=== PATIENT | male | born 1935 | race African-American/Black ===

== ENCOUNTER 2019-01-18 07:38 | Inpatient (IN) ==
[2019-01-18] MEDS ORDERED: ASPIRIN PO ONE (07:51)
[2019-01-18] MEDS ORDERED: NITROGLYCERIN TOP ONE (07:52)
[2019-01-18] MEDS ORDERED: LASIX IV ONE (07:52)
[2019-01-18 08:14] LABS: BASO# 0.05 X1000 (0.0-0.2); BASO% 0.6 % (0.0-0.8); EOS# 0.18 X1000 (0.0-0.7); EOS% 2.2 % (0.0-10.0); HEMATOCRIT 37.7 % (42.0-52.0); HEMOGLOBIN 12.1 g/dL (14.0-18.0); LYMPH# 1.74 X1000 (1.2-3.4); LYMPH% 21.6 % (20.5-51.1); MCH 29.9 PG (27-31); MCHC 32.1 g/dL (33-37); MCV 93.1 FL (81-99); MONO# 0.84 X1000 (0.11-0.59); MONO% 10.4 % (1.7-9.3); MPV 9.8 FL (7.4-10.4); NEUT# 5.24 X1000 (1.4-6.5); NEUT% 65.2 % (42.2-75.2); PLT 254 X1000 (130-400); RBC 4.05 XMIL (4.7-6.1); RDW 13.8 % (11.5-14.5); WBC 8.05 X1000 (4.8-10.8)
--- NOTE | 2019-01-18 08:19 | EKG Report ---
Test Performed on : 01/18/2019 07:50:17 AM Test Reason : SOB Blood Pressure : / mmHG Vent. Rate : 104 BPM Atrial Rate : 030 BPM P-R Int : 000 ms QRS Dur : 114 ms QT Int : 408 ms P-R-T Axes : 000 -44 061 degrees QTc Int : 536 ms Accelerated Junctional rhythm. with occasional premature ventricular complexes. Left axis deviation Low voltage QRS Cannot rule out Anteroseptal infarct (cited on or before 06-JUL-2013) Prolonged QT Abnormal ECG When compared with ECG of 04-JAN-2014 07:09, Significant changes have occurred Unconfirmed Result
[2019-01-18 08:21] LABS: INR 1.08; PROTIME 14.1 Seconds (11.0-16.0)
[2019-01-18 08:22] LABS: PTT 34.1 Seconds (22.3-41.8)
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
[2019-01-18] MEDS ORDERED: NS 1,000 ML IV ONE (08:52)
[2019-01-18] MEDS ORDERED: ROCEPHIN 1 GM in NS 50 ML IV ONE (08:52)
[2019-01-18] MEDS ORDERED: ZITHROMAX PO ONE (08:52)
[2019-01-18 08:58] LABS: ALB/GLOB RATIO 1.4; ALBUMIN 3.8 g/dL (3.5-5.0); CALCIUM 9.5 mg/dL (8.8-10.2); CREATININE 1.6 mg/dL (0.7-1.2); POTASSIUM 4.3 mmol/L (3.5-5.1); TOTAL BILIRUBIN 0.66 mg/dL (0.20-1.00); TOTAL PROTEIN 6.6 g/dL (6.3-8.3)
[2019-01-18 09:11] LABS: ALLEN TEST YES; BE -3.5 mmoll (-3.0-3.0); BLOOD TYPE ARTERIAL; HCO3-(ACT) 22.2 mmoll (20.0-26.0); O2(CT) 16.3 mL/dL (15.0-23.0); O2HB 95.9 % (95.0-99.0); PCO2(98.6) 31 mmHg (35-45); PO2(98.6) 87 mmHg (60-100); SAMPLE BLOOD; SAO2 98.9 % (95.0-100.0); pH(98.6) 7.42 (7.35-7.45)
[2019-01-18 09:13] LABS: MODALITY CANNULA
[2019-01-18 09:45] LABS: URINE SOURCE CATH
[2019-01-18 09:53] LABS: BILIRUBIN URINE NEGATIVE (NEGATIVE); BLOOD URINE NEGATIVE (NEGATIVE); COLOR YELLOW; GLUCOSE URINE NEGATIVE (NEGATIVE); KETONE URINE NEGATIVE (NEGATIVE); LEUKOCYTES URINE NEGATIVE (NEGATIVE); NITRITE URINE NEGATIVE (NEGATIVE); PROTEIN URINE TRACE mg/dL (NEGATIVE); TURBIDITY URINE CLEAR (CLEAR); UR EPITHELIAL CELLS <10 /HPF (<10); URINE BACTERIA NEGATIVE /HPF; URINE RBC <10 /HPF (<10); URINE WBC <10 /HPF (<10); UROBILINOGEN URINE NORMAL (NORMAL)
[2019-01-18] MEDS ORDERED: ZITHROMAX 500 MG/NS 500 MG/250 ML IVPB IV ONE (10:03)
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
--- NOTE | 2019-01-18 10:28 | HISTORY AND PHYSICAL ---
HISTORY OF PRESENT ILLNESS: This is an 83-year-old. He presents with a couple-day history of shortness of breath. He had recently had a right hip fracture and repair and then was doing rehab, and he at times would complain of not being able to empty his bladder, but also shortness of breath and became more short of breath today. Came to the emergency room. They did put a Castillo catheter in. He was having trouble with voiding. PAST MEDICAL HISTORY: 1. Congestive heart failure. Looking at his echo, he has a normal ventricular ejection fraction and no significant valvular dysfunction. So, I assume this is congestive heart failure with normal ejection fraction. 2. Hypertension. 3. Hyperlipidemia. 4. COPD. 5. Status post cholecystectomy. He had a left heart catheterization in 2001 that demonstrated ejection fraction of 50% at that time. He had a ramus which was 40% to 50% block. His circumflex with no significant disease. 6. History of diabetes mellitus type 2. 7. Nonobstructive coronary artery disease. 8. Chronic kidney disease. Creatinine baseline was 1.8. SOCIAL HISTORY: He does not smoke or drink. He is a patient of Dr. Ej Lopez. FAMILY HISTORY: Noncontributory. REVIEW OF SYSTEMS: General: No fever or chills. HEENT: Unremarkable. No change in visual or hearing acuity. Neck: No neck pain. No cervical adenopathy. Respiratory: No increased work of breathing until this last couple weeks. Recently had a right hip surgery and went to rehab. GI and : Trouble with voiding and emptying his bladder. Endocrinologic/hematologic: No significant history. Musculoskeletal: Recent right hip open reduction and internal fixation. PHYSICAL EXAMINATION: VITAL SIGNS: Temperature 98.5 degrees, pulse 113, respirations 30, blood pressure 171/102. EYES: Pupils are equal and round. LUNGS: Clear in all lung rodriguez. CARDIOVASCULAR EXAM: Regular rhythm and rate without murmur or S3. ABDOMEN: Soft. SKIN: Warm and dry. LABORATORY DATA: White count 8050, hematocrit 37, platelet count 254,000. Sodium 144, potassium 4.3, chloride 104. BUN 18, creatinine 1.6. AST 20, ALT 20. Troponin was 0.075. ProBNP was 17, 625. Pro time 14, INR 1.08, PTT is 34. Urinalysis was unremarkable. Blood gas is pH 7.42, pCO2 31, PO2 is 87, O2 saturation is 98%. IMAGING: Chest x-ray: Pulmonary edema, borderline cardiomegaly. ASSESSMENT AND PLAN: 1. Pulmonary venous hypertension and shortness of breath. We will give him 40 of Lasix intravenous every 12 hours right now. We will see if we can adjust his afterload with medications. His blood pressure currently is a little high. In looking on his home medicines, he is on lisinopril 20 mg daily, so we will go up on the lisinopril of 20 mg twice a day and we will go ahead and add Norvasc or amlodipine. We will give him 5 mg twice a day oral. We will check his magnesium and potassium. We will check his thyroid function. 2. I suspect benign prostatic hypertrophy with bladder retention. So, he has a Castillo catheter in right now. We are going to put him on Flomax 0.4 mg. We will do that twice a day for right now, and I think we will go ahead and put him on some Proscar which is 5 mg daily, and see if we can take his Castillo catheter out a little later on, probably tomorrow. 3. History of right hip fracture repair. Continue physical therapy. 4. Hypertension. cc: Leonard Putnam MD
[2019-01-18] MEDS ORDERED: APRESOLINE IV PRN (11:42)
[2019-01-18] MEDS ORDERED: ELAVIL PO PRN (11:42)
[2019-01-18] MEDS ORDERED: ZOFRAN IV PRN (11:42)
[2019-01-18] MEDS ORDERED: TYLENOL PO PRN (11:42)
[2019-01-18 12:26] LABS: FREE T4 1.43 ng/dL (0.93-1.70); TSH 3.67 uIUmL (0.27-4.20)
[2019-01-18] MEDS: NORVASC PO SCH (13:04)
[2019-01-18] MEDS: FLOMAX PO SCH ×2 (13:04→22:12)
[2019-01-18] MEDS: PROSCAR PO SCH (15:54)
[2019-01-18] MEDS: LASIX IV SCH (22:12)
[2019-01-18] MEDS: PRINIVIL PO SCH (22:12)
[2019-01-18] MEDS: ELIQUIS PO SCH (22:12)
[2019-01-18] MEDS: COREG PO SCH (22:12)
[2019-01-19 05:57] LABS: BASO# 0.02 X1000 (0.0-0.2); BASO% 0.3 % (0.0-0.8); EOS# 0.12 X1000 (0.0-0.7); EOS% 1.7 % (0.0-10.0); HEMATOCRIT 33.8 % (42.0-52.0); HEMOGLOBIN 10.9 g/dL (14.0-18.0); LYMPH% 24.2 % (20.5-51.1); MCHC 32.2 g/dL (33-37); MCV 93.1 FL (81-99); MONO# 0.75 X1000 (0.11-0.59); MONO% 10.7 % (1.7-9.3); MPV 10.1 FL (7.4-10.4); NEUT# 4.43 X1000 (1.4-6.5); NEUT% 63.1 % (42.2-75.2); PLT 245 X1000 (130-400); RBC 3.63 XMIL (4.7-6.1); RDW 13.7 % (11.5-14.5); WBC 7.02 X1000 (4.8-10.8)
[2019-01-19 06:03] LABS: CALCIUM 9.3 mg/dL (8.8-10.2); CREATININE 1.6 mg/dL (0.7-1.2); POTASSIUM 3.9 mmol/L (3.5-5.1)
[2019-01-19] MEDS: FLOMAX PO SCH ×2 (08:58→20:10)
[2019-01-19] MEDS: PROSCAR PO SCH (08:58)
[2019-01-19] MEDS: NORVASC PO SCH (08:58)
[2019-01-19] MEDS: LASIX IV SCH ×2 (08:58→20:10)
[2019-01-19] MEDS: ASPIRIN PO SCH (08:58)
[2019-01-19] MEDS: COREG PO SCH ×2 (08:58→20:10)
[2019-01-19] MEDS: ELIQUIS PO SCH ×2 (08:58→20:10)
[2019-01-19] MEDS: PRINIVIL PO SCH ×2 (08:58→21:20)
[2019-01-19] MEDS: KLOR-CON PO SCH (08:59)
--- NOTE | 2019-01-19 12:33 | PROGRESS NOTE ---
DATE: 01/19/2019 SUBJECTIVE: Mr. Corral is feeling better and his breathing is better. OBJECTIVE: Temperature 99 degrees, pulse 89, respirations 15, and blood pressure 111/65. Pupils are equal and round. Lungs are clear in all lung rodriguez. Cardiovascular exam with regular rhythm and rate without murmur or S3. ASSESSMENT AND PLAN: 1. Pulmonary venous hypertension and shortness of breath. He seems to be responding to Lasix with good diuresis. He is breathing better and clinically feels better. He is on lisinopril 20 mg a day, and we went up on it to 20 mg twice a day. We added Norvasc 5 mg twice a day. 2. Benign prostatic hypertrophy with bladder retention. Castillo catheter placed. Put him on some Proscar, and Flomax, and see if we get the catheter out. 3. He has had a right hip fracture repair fairly recently, and was getting physical therapy. 4. Hypertension. CURRENT MEDICATIONS: He is on Elavil 10 mg at bedtime p.r.n., Norvasc 5 mg daily, Eliquis 2.5 mg b.i.d., aspirin 81 mg a day, Coreg 6.25 mg b.i.d., Proscar 5 mg a day, Lasix 40 mg IV q.12, hydralazine 10 mg IV q.4 hours p.r.n., lisinopril 20 mg b.i.d., Flomax 0.4 mg b.i.d., aspirin 325 mg and got a one time dose. He got 1 dose of azithromycin and 1 dose of ceftriaxone when he came in. LABORATORY DATA: Review of his labs this morning, white count 7020, hematocrit 33, and platelet count 245,000. Sodium 142, potassium 3.9, chloride 103, bicarb 25, BUN 18, creatinine 1.6, and that is what he came in with as well 1.6. His proBNP was 81070. cc: Leonard Putnam MD
[2019-01-20 08:29] LABS: CALCIUM 9.5 mg/dL (8.8-10.2); CREATININE 1.9 mg/dL (0.7-1.2); MAGNESIUM 1.6 mg/dL (1.5-2.7); POTASSIUM 4.2 mmol/L (3.5-5.1)
--- NOTE | 2019-01-20 08:32 | PROGRESS NOTE ---
DATE: 01/20/2019 SUBJECTIVE: Mr. Corral is a patient of Dr. Lopez, an 83-year-old who presents with a couple day history of shortness of breath. He has recently had a hip fracture and repair. He is having trouble emptying his bladder. He also had shortness of breath and presented to the emergency room. States he is breathing better today, and last night had a good night's sleep. OBJECTIVE: Vital Signs: Temperature 98.0 degrees, pulse 66, respirations 15, blood pressure 116/50. Eyes: Pupils are equal and round. Lungs: Lungs are clear in all lung rodriguez. Cardiovascular exam: Regular rhythm and rate without murmur or S3. Abdomen: Abdomen is soft. Skin: Warm and dry. : Urine output is 1800 mL. ASSESSMENT AND PLAN: 1. Pulmonary venous hypertension. Shortness of breath. Has responded to diuresis. Seems to be doing better. 2. Benign prostatic hypertrophy, suspected with bladder retention. He is on Proscar and Flomax. We need to stop the Castillo catheter, see if he can void. 3. Recent right hip fracture. 4. Hypertension. So, we will get the Castillo catheter out. We will see how we do walking around. He has physical therapy ordered. Hopefully can go home. Note his serum creatinine was 1.6 yesterday which seems to be baseline. cc: Leonard Putnam MD
--- NOTE | 2019-01-20 08:34 | Diag Imaging Result Doc PS360 ---
EXAM: CHEST-2 VIEWS HISTORY: chf TECHNIQUE: Chest two views COMPARISON: 01/18/2019 FINDINGS: The lungs are well expanded. The heart is not enlarged. The vessels are not distended on the current exam. There are no infiltrates. There is scarring in the left base. No pleural effusions. There are multiple pieces of metal in the lower neck and upper chest similar to the prior study. IMPRESSION: Resolution of the pulmonary edema. Electronically signed by Augie Burleson 01/20/2019 8:32 AM
[2019-01-20] MEDS: LASIX IV SCH (08:56)
[2019-01-20] MEDS: NORVASC PO SCH (08:57)
[2019-01-20] MEDS: COREG PO SCH (08:57)
[2019-01-20] MEDS: ELIQUIS PO SCH (08:57)
[2019-01-20] MEDS: PROSCAR PO SCH (08:57)
[2019-01-20] MEDS: ASPIRIN PO SCH (08:57)
[2019-01-20] MEDS: PRINIVIL PO SCH (08:57)
[2019-01-20] MEDS: FLOMAX PO SCH (08:57)
[2019-01-20] MEDS: KLOR-CON PO SCH (08:57)
[2019-01-20 16:07] VITALS: BP 111/67
--- NOTE | 2019-01-20 17:26 | DISCHARGE SUMMARY ---
ADMISSION DATE: 01/18/2019 DISCHARGE DATE: 01/20/2019 HISTORY OF PRESENT ILLNESS: This is an 83-year-old who presented with a couple-day history of shortness of breath. Recently had a repeat right hip fracture and repair. Was doing rehab and complained of not being able to empty his bladder. Also had some shortness of breath and became more short of breath. Came to the emergency room. PAST MEDICAL HISTORY: 1. Congestive heart failure. Looking at his echo, he has a normal left ventricular ejection fraction. No significant valvular dysfunction. 2. Hypertension. 3. Hyperlipidemia. 4. COPD. 5. Status post cholecystectomy. 6. Had a left heart catheterization 2001 which demonstrated ejection fraction 50% at that time. Had a ramus with 40% to 50% block. Circumflex with no significant disease. 7. History of diabetes mellitus type 2. 8. Nonobstructive coronary artery disease. 9. Chronic kidney disease. Creatinine baseline is about 1.8. HOSPITAL COURSE: He was admitted with some mild pulmonary venous hypertension and then had trouble emptying his bladder. Put a Castillo catheter in. Suspect benign prostatic hypertrophy. His chest x-ray on admission: Pulmonary edema, borderline cardiomegaly. Diuresed him a little bit. We were able to take the Castillo catheter out. He is breathing much better, has had resolution of his pulmonary edema, and he really wanted to go home, so we will discharge him home. DISCHARGE MEDICATIONS: Elavil 10 mg p.o. at bedtime p.r.n., Norvasc 5 mg a day, Eliquis 2.5 mg b.i.d., aspirin 81 mg a day, Coreg 6.25 mg b.i.d., Proscar 5 mg a day, Lasix 40 mg p.o. every morning, and Apresoline. We will stop Prinivil 20 mg b.i.d., and Klor-Con 20 mEq p.o. daily and Flomax. FOLLOWUP: He will follow up with his primary care physician. cc: Leonard Putnam MD
== END 2019-01-20 18:12 | disposition home or self-care (01) | DRG 291 ==
LOC: SUPCPDRO → ED 07:38 → EDIPHOLD 11:25 → 1N 14:20
PROVIDERS: ATTEND Emergency Medicine

== ENCOUNTER 2019-06-03 07:33 | Inpatient (IN) ==
--- NOTE | 2019-06-03 08:22 | PROVIDER DOCUMENTATION ---
HPI-Cardiac General - General Chief Complaint: Shortness of Breath Stated Complaint: SOB Time Seen by Provider: 06/03/19 08:06 Allergies/Adverse Reactions: Patient Allergies Allergy/AdvReac Type Severity Reaction Status Date / Time No Known Allergies Allergy Verified 06/03/19 09:31 Home Medications: Home Medication List Medication Instructions Recorded Confirmed Last Taken Type Aspirin [Rosy Chewable Aspirin] 81 mg PO DAILY 01/02/14 06/03/19 1 Day Ago History ~06/02/19 Potassium Chloride [Klor-Con M20] 1 tab PO DAILY 01/02/14 06/03/19 1 Day Ago History ~06/02/19 Carvedilol 1 tab PO BID 01/18/19 06/03/19 1 Day Ago History ~06/02/19 Amlodipine [Norvasc] 5 mg PO DAILY 30 Days #30 tab 01/20/19 06/03/19 1 Day Ago Rx ~06/02/19 Finasteride [Proscar] 5 mg PO DAILY 30 Days #30 tab 01/20/19 06/03/19 1 Day Ago Rx ~06/02/19 LISINOpril [Prinivil] 20 mg PO BID 30 Days #60 tab 01/20/19 06/03/19 1 Day Ago Rx ~06/02/19 Tamsulosin [Flomax] 0.4 mg PO DAILY 30 Days #30 cap 01/20/19 06/03/19 1 Day Ago Rx ~06/02/19 Furosemide 40 mg PO DAILY 06/03/19 06/03/19 1 Day Ago History ~06/02/19 - History of Present Illness-Cardiac Nature of Presenting Problem: pt w/ hx of CHF states he developed dyspnea this a.m. lives alone, called his son who brought him to ED. pt denies fever, CP, productive sputum, audible wheezing. he denies (pedal edema). last admission summary as follows: ADMISSION DATE: 01/18/2019 DISCHARGE DATE: 01/20/2019 HISTORY OF PRESENT ILLNESS: This is an 83-year-old who presented with a couple- day history of shortness of breath. Recently had a repeat right hip fracture and repair. Was doing rehab and complained of not being able to empty his bladder. Also had some shortness of breath and became more short of breath. Came to the emergency room. PAST MEDICAL HISTORY: 1. Congestive heart failure. Looking at his echo, he has a normal left ventric ular ejection fraction. No significant valvular dysfunction. 2. Hypertension. 3. Hyperlipidemia. 4. COPD. 5. Status post cholecystectomy. 6. Had a left heart catheterization 2001 which demonstrated ejection fraction 50% at that time. Had a ramus with 40% to 50% block. Circumflex with no significant disease. 7. History of diabetes mellitus type 2. 8. Nonobstructive coronary artery disease. 9. Chronic kidney disease. Creatinine baseline is about 1.8. HOSPITAL COURSE: He was admitted with some mild pulmonary venous hypertension and then had trouble emptying his bladder. Put a Castillo catheter in. Suspect benign prostatic hypertrophy. His chest x-ray on admission: Pulmonary edema, borderline cardiomegaly. Diuresed him a little bit. We were able to take the Castillo catheter out. He is breathing much better, has had resolution of his pulmonary edema, and he really wanted to go home, so we will discharge him home. Review of Systems - Adult - REVIEW OF SYSTEMS - ADULT Constitutional: reports: no symptoms reported Eyes: reports: no symptoms reported Ears, Nose, Mouth & Throat: reports: no symptoms reported Cardiovascular: reports: see HPI Respiratory: reports: see HPI Gastrointestinal: reports: no symptoms reported Genitourinary: reports: no symptoms reported Musculoskeletal: reports: no symptoms reported Integumentary: reports: no symptoms reported Neurological: reports: no symptoms reported Psychiatric: reports: no symptoms reported Endocrine: reports: no symptoms reported Hematologic/Lymphatic: reports: no symptoms reported Allergic/Immunologic: reports: no symptoms reported All Other Systems: Reviewed and Negative Past History - Adult - PAST MEDICAL HISTORY-ADULT Review of Records: reports: Old Records Reviewed Cardiovascular: reports: CHF, HTN, hyperlipidemia Respiratory: reports: COPD - PRIOR SURGERIES/PROCEDURES Surgical/Procedure History: reports: cholecystectomy - IMMUNIZATION STATUS Childhood Immunizations: See Nurse Assessment Flu Vaccine: See Nurse Assessment Physical Exam-General - PHYSICAL EXAM-ADULT Initial Vital Signs Reviewed: Yes (02 sat 100% on RA) - CONSTITUTIONAL General Appearance: appears well, alert, no apparent distress - EYES Eyes: PERRL/EOMI, pink conjunctivae. negative: sclera injected, scleral icterus - HEAD, EARS, NOSE, MOUTH & THROAT HENMT: normocephalic/atraumatic, moist mucous membranes - NECK Neck: full range of motion, other (no visible NVD w/ HOB elevated 30 degrees) - RESPIRATORY Respiratory: chest non-tender, no accessory muscle use, decreased breath sounds, crackles (at left base, minimal). negative: respiratory distress, rhonchi, stridor, wheezing - CARDIOVASCULAR Cardiovascular: normal peripheral pulses, regular rate, rhythm - GASTROINTESTINAL (ABDOMEN) Abdominal Exam: normal bowel sounds, non tender, soft - LYMPHATIC Lymphatic: no adenopathy - MUSCULOSKELETAL Back Exam: no CVA tenderness Extremity: normal range of motion, normal gait, no pedal edema, no calf tenderness Peripheral Pulses: radial (R): 2+, radial (L): 2+ - SKIN Integumentary: normal color, normal turgor, warm/dry - NEUROLOGIC Neurologic: business unit controller II-XII nml as tested - PSYCHIATRIC Psych/Mental Status: normal mood/affect, normal thought content Progress - PLAN OF CARE/RESULTS Progress/Plan/Lab Results: Orders Category Date Time Status Admit - [facility] Routine AdmDCTranf 06/03/19 12:11 Active Activity - Up with Assistance ORDERED Care 06/03/19 12:11 Active Apply Mechanical Device [QM] ORDERED Care 06/03/19 12:11 Active Cardiac Monitoring DIRECTED Care 06/03/19 08:07 Completed Intake and Output-Strict ORDERED Care 06/03/19 12:11 Active Oxygen Therapy- ED Nursing DIRECTED Care 06/03/19 08:07 Active Saline Loc NOW Care 06/03/19 08:07 Active Vital Signs Order Q 4-HR ASSESS Care 06/03/19 12:11 Active Z-Document. for Tele Applied ORDERED Care 06/03/19 12:11 Active Heart Healthy Diet Diet 06/03/19 12:11 Active CHEST-2 VIEWS [RAD] Stat Exams 06/03/19 08:07 Completed CHEST-PORTABLE [RAD] Routine Exams 06/04/19 06:00 Completed CBC WITH DIFF [HEME] Routine Lab 06/04/19 07:30 Completed CBC WITH ELECTRONIC DIFF [HEME] Stat Lab 06/03/19 09:25 Completed CK TOTAL [CHEM] Q8H Lab 06/03/19 11:58 Completed CK TOTAL [CHEM] Q8H Lab 06/03/19 20:01 Completed COMPREHENSIVE METABOLIC PANEL [CHEM] Routine Lab 06/04/19 07:30 Completed COMPREHENSIVE METABOLIC PANEL [CHEM] Stat Lab 06/03/19 09:25 Completed MAGNESIUM [CHEM] Routine Lab 06/04/19 07:30 Completed MAGNESIUM [CHEM] Stat Lab 06/03/19 09:25 Completed POTASSIUM [CHEM] Timed Lab 06/03/19 11:58 Completed PRO B-NATRIURETIC PEPTIDE Stat Lab 06/03/19 09:25 Completed PROTIME WITH INR [COAG] Stat Lab 06/03/19 09:25 Completed PTT [COAG] Stat Lab 06/03/19 09:25 Completed TROPONIN T HIGH SENSITIVITY Q8H Lab 06/03/19 11:58 Completed TROPONIN T HIGH SENSITIVITY Q8H Lab 06/03/19 20:01 Completed TROPONIN T HIGH SENSITIVITY Stat Lab 06/03/19 09:25 Completed Acetaminophen [Tylenol] Med 06/03/19 12:11 Active 650 mg PO Q6H PRN PRN Amlodipine [Norvasc] Med 06/04/19 09:00 Active 5 mg PO DAILY Aspirin Med 06/04/19 09:00 Active 81 mg PO DAILY Calcium Chloride Syringe Med 06/03/19 10:26 Discontinued 1 gm IV NOW ONE Carvedilol [Coreg] Med 06/03/19 21:00 Active 6.25 mg PO BID Dextrose 50% Syringe [D50w Syringe] Med 06/03/19 10:26 Discontinued 25 ml IV NOW ONE Finasteride [Proscar] Med 06/04/19 09:00 Active 5 mg PO DAILY Furosemide [Lasix] Med 06/03/19 10:28 Discontinued 40 mg IV NOW ONE Insulin Human Regular [Humulin R] Med 06/03/19 10:27 Discontinued 5 unit IV NOW ONE Ondansetron [Zofran] Med 06/03/19 12:11 Active 4 mg IV Q4H PRN PRN Sodium Bicarbonate 8.4% Med 06/03/19 10:28 Discontinued 50 meq IV NOW ONE Telemetry [OM.EQ] Routine Oth 06/03/19 12:11 Active Transfer/Admit Order [TRANSFER] Routine Transfer 06/03/19 11:20 Completed Result Diagrams: 06/04/19 07:30 06/04/19 07:30 - REASSESSMENT Reassessment #1 Time Reassessed: 09:41 Status: unchanged (CXR reported as atelectasis vs. "tiny infiltrate" at left base. doubt PNA based on clinical hx and exam. awaiting all other diagnostics.) Reassessment #2 Time Reassessed: 10:29 Status: unchanged (lab reports k+ 6.0, no hemolysis. creat @ 2.4 is acute exacerb of CKI (highest on record). meds given for hyperkalemia, will consult for admission.) Departure - Departure Date of Disposition Decision: 06/03/19 Time of Disposition Decision: 11:15 DIAGNOSIS: Acute renal injury, Hyperkalemia Disposition: ADMITTED INPATIENT 09 Certified Medical Emergency: Emergent Condition: Critical - Critical Care Note This patient required my direct & personal management of CC.: Yes Total Time (mins): 40 Critical Care Statement: This patient required my direct personal management to treat or rule out processes, the absence of which, could potentiallly result in sudden, clinically significant life or limb threatening deterioration. Attestation - Physician/ NAYANA Attestation The physician spent face to face time with patient:: Yes Advanced Practice Provider documentation review:: Supervising physician onsite and consulted in the evaluation and care of this patient. The physician did have a face to face encounter with the patient.
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
[2019-06-03 09:54] LABS: BASO# 0.03 X1000 (0.0-0.2); BASO% 0.4 % (0.0-0.8); EOS# 0.17 X1000 (0.0-0.7); EOS% 2.5 % (0.0-10.0); HEMOGLOBIN 12.7 g/dL (14.0-18.0); LYMPH# 1.54 X1000 (1.2-3.4); LYMPH% 22.8 % (20.5-51.1); MCH 29.2 PG (27-31); MCHC 31.8 g/dL (33-37); MONO# 0.53 X1000 (0.11-0.59); MONO% 7.8 % (1.7-9.3); MPV 10.3 FL (7.4-10.4); NEUT# 4.49 X1000 (1.4-6.5); NEUT% 66.5 % (42.2-75.2); PLT 210 X1000 (130-400); RBC 4.35 XMIL (4.7-6.1); RDW 14.7 % (11.5-14.5); WBC 6.76 X1000 (4.8-10.8)
[2019-06-03 10:11] LABS: ALB/GLOB RATIO 1.7; ALBUMIN 4.2 g/dL (3.5-5.0); CALCIUM 9.6 mg/dL (8.8-10.2); CREATININE 2.4 mg/dL (0.7-1.2); TOTAL BILIRUBIN 0.45 mg/dL (0.20-1.00); TOTAL PROTEIN 6.7 g/dL (6.3-8.3)
[2019-06-03] MEDS ORDERED: D50W SYRINGE IV ONE (10:26)
[2019-06-03] MEDS ORDERED: CALCIUM CHLORIDE SYRINGE IV ONE (10:26)
[2019-06-03] MEDS ORDERED: HUMULIN R IV ONE (10:27)
[2019-06-03] MEDS ORDERED: SODIUM BICARBONATE 8.4% IV ONE (10:28)
[2019-06-03] MEDS ORDERED: LASIX IV ONE (10:28)
--- NOTE | 2019-06-03 10:29 | ED EKG INTERP ---
This chart was entered by Urszula Alexandra Scribe, acting as scribe for Asif Bang MD. EKG Interpretation - EKG Time of EKG reading by physician:: 08:03 EKG Read and Signed by:: Asif Bang EKG Interpretation (*Must complete 3 of following elements*): Abnormal (anteroseptal infarct, age undetermined; left anterior fascicular block) Rate: 87 Rhythm: Sinus w/1st degree AV block QRS: normal [place] Interval: normal Attestation - Physician/ NAYANA Attestation Patient care was provided by Advanced Practice Provider:: No The physician spent face to face time with patient:: Yes Advanced Practice Provider documentation review:: Supervising physician onsite and consulted in the evaluation and care of this patient. The physician did have a face to face encounter with the patient. This chart was documented by the indicated scribe, (Urszula Alexandra Scribe) and accurately reflects the services I performed and decisions made by me, Asif Bang MD, as attested by the provider's signature.
[2019-06-03 11:09] LABS: INR 1.02; PROTIME 13.5 Seconds (11.0-16.0)
[2019-06-03 11:10] LABS: PTT 31.6 Seconds (22.3-41.8)
[2019-06-03] MEDS ORDERED: ZOFRAN IV PRN (12:11)
[2019-06-03] MEDS ORDERED: TYLENOL PO PRN (12:11)
[2019-06-03] MEDS ORDERED: NS 1,000 ML IV SCH (12:15)
[2019-06-03] MEDS: FLOMAX PO SCH (20:24)
[2019-06-03] MEDS: COREG PO SCH (20:24)
--- NOTE | 2019-06-03 21:32 | HISTORY AND PHYSICAL ---
PRIMARY CARE PROVIDER: Dr. Lopez. CHIEF COMPLAINT: Shortness of breath. HISTORY OF PRESENT ILLNESS: Mr. Corral is a pleasant 83-year-old gentleman who carries a past medical history of congestive heart failure, hypertension, hyperlipidemia, COPD, diabetes mellitus type 2, coronary artery disease, and chronic kidney disease (baseline appears to be around 1.8). He reports he got up this morning around 6:30 a.m. He got to moving around and became short of breath. He got concerned. He lives alone, so he called his son, who brought him to the ED. He does not have any complaints of weight gain. He actually reports that he had lost some weight secondary to losing his over a year ago; however, he is back to his normal weight. No complaints of lower extremity edema. No wheezing. No chest pain. No cough. No fever. No chills. No nausea, vomiting, or diarrhea. He has had a head cold recently. He did report 2 episodes of dizziness 2 months ago, one when he was in the shower bending over and stood up, and another when he was getting off a stepladder, but nothing recent. Workup in the ED: His chest x-ray does not show any pulmonary edema. Chest x-ray does show some atelectasis or tiny infiltrate in his left lung base. He has a normal white count; however, his potassium was 6, his BUN was 36 and his creatinine is up to 2.4. Slightly elevated troponin at 86 and a proBNP of 7301. He was given hyperkalemic treatment in the ED. He has a recheck potassium due at noon. We will hold any nephrotoxic home medications. We will gently hydrate him overnight. He is currently saturating well on room air. PAST MEDICAL HISTORY: Per HPI. PAST SURGICAL HISTORY: Right hip fracture repair back in November 2018, cholecystectomy. FAMILY HISTORY: Reviewed and noncontributory. SOCIAL HISTORY: He is a of about 1 year. No alcohol, tobacco, or illicit drug use. He is a patient of Dr. Lopez. 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 He loves to fish. REVIEW OF SYSTEMS: Twelve-point review of systems completely negative except for those mentioned in HPI. PHYSICAL EXAMINATION: VITAL SIGNS: Temperature is 98.1, heart rate 93, respirations 20, blood pressure 121/84. O2 is 100% on room air. GENERAL: Mr. Corral is a pleasant 83-year-old gentleman who is sitting up on the stretcher in no acute distress. HEENT: Atraumatic, normocephalic. PERRL. NECK: Supple. Trachea midline. CARDIOVASCULAR: S1, S2 appreciated. PULMONARY: Bilateral breath sounds. Clear to auscultation. No rales, rhonchi or wheezes. GI: Soft, nontender, nondistended. Positive bowel sounds in 4 quadrants. LOWER EXTREMITIES: Negative for edema. NEUROLOGIC: No focal deficits noted. DIAGNOSTIC DATA: Chest x-ray: Scarring with atelectasis or tiny infiltrate in the left lung base. EKG: Normal sinus rhythm with a first-degree AV block, as interpreted by Dr. Bang. LABORATORY DATA: White count 6, hemoglobin and hematocrit 12 and 40, platelet count is 210. Sodium 144, potassium 6.0, chloride 110, bicarb 22, BUN 36, creatinine 2.4, blood glucose 95. Troponin 86. ProBNP is 7301. ASSESSMENT/PLAN: 1. Hyperkalemia. The patient has been given hyperkalemia treatment in the ED. We will recheck potassium at noon. We will hold any nephrotoxic medications. 2. Acute kidney injury on chronic kidney disease. Baseline is around 1.8. Again, we will hold any nephrotoxic medications. Continue with gentle intravenous hydration. 3. Congestive heart failure history, systolic. He does take home Lasix. He does not appear to be in fluid volume overload. He does not have any weight gain. No lower extremity edema. No pulmonary edema on his chest x-ray. We will recheck his proBNP in the a.m. We are going to gently hydrate him for his acute kidney injury. 4. Hypertension, stable. 5. Diabetes mellitus type 2, appears to be diet controlled, not on any home medications. 6. Coronary artery disease, not complaining of any chest pain. Does have a slightly elevated troponin. We will continue to trend. 7. Further recommendations to follow physician evaluation, laboratory and diagnostic data. Dictated by JANKI Pope for Derrick Garza MD cc: MD Ej Boogie
--- NOTE | 2019-06-03 23:30 | HISTORY AND PHYSICAL ---
ADDENDUM: I have seen and examined Mr. Corral today in the emergency room. Son was at the bedside at the time of the encounter. Mr. Corral comes in this morning because of acute onset of worsening shortness of breath. Mr. Corral referred that he has had shortness of breath for over 20 years. He said that this morning he woke up and he started to make some coffee, but then he became extremely winded, so he came to the emergency room, where he was evaluated and was found to have a potassium of 6.0 on a serum sample. Patient is also seen to be clinically dry. OBJECTIVELY: Current Vitals: Blood pressure is 110/73, pulse of 113, respirations 20, temperature is 98 degrees. General: Mr. Corral is an 83-year-old gentleman. He is in bed, no distress. HEENT: Mucosa is pink and slightly dry. Anicteric. Acyanotic. Neck: Supple. Chest: For the most part, clear to auscultation. No crepitations. No rhonchi. Cardiovascular: Mildly tachycardic. There is a 2/6 aortic systolic murmur. Extremities: No pedal edema. Gastrointestinal: Abdomen is soft. FOOD BEVERAGE SUPERVISOR: Patient is awake, alert, and oriented. LABORATORY DATA: CBC shows mild normocytic anemia. Chemistry is also reviewed. A repeat potassium is down to 4.9. The patient presented with a chloride of 110, bicarb of 22. Creatinine was 2.4, is slightly elevated from the baseline. Upon presentation, patient's O2 saturation was 99% on room air. ASSESSMENT: 1. Acute onset of shortness of breath with unremarkable chest x-ray. Upon presentation, patient was saturating very well. We think this is probably all related to the electrolyte abnormalities. 2. Severe hyperkalemia. On presentation, patient was acutely treated. His potassium is down to 4.9. The patient was on multiple medications at home which could have potentially elevated his potassium, including lisinopril, potassium supplement and carvedilol. Lisinopril and potassium have been withheld. The patient has been started back on his other home medications. 3. Clinical volume depletion. Will continue with the gentle hydration overnight. Keep Lasix off and re-evaluate Mr. Corral tomorrow morning. 4. History of congestive heart failure. The patient's ejection fraction on myocardial perfusion scan in November 2018 shows 43%. The patient is euvolemic, is actually hypovolemic at this point. We are going to gently hydrate him overnight and keep a very close eye on his volume status. 5. History of ischemic cardiomyopathy, noted. 6. Hypertensive heart disease with left ventricular hypertrophy. 7. Nonobstructive coronary artery disease, noted. 8. Benign prostatic hypertrophy. The patient is on finasteride and tamsulosin. PREMORBID CONDITION: Mr. Corral is an 83-year-old male who lives by himself. Prior to hospitalization, he was self-sufficient, doing all his ADLs by himself. He is living alone but has a very good family support. Please refer to the details of the history and physical that has been dictated by the OIL FIELD CASER in the chart. I have discussed the plan with her. I have also discussed my findings and the plan with Mr. Corral as well as with his son, who was at the bedside at the time of the encounter. cc: Derrick Garza MD
--- NOTE | 2019-06-04 04:52 | EKG Report ---
Test Performed on : 06/04/2019 04:28:31 AM Test Reason : Elevated Troponin Blood Pressure : / mmHG Vent. Rate : 063 BPM Atrial Rate : 063 BPM P-R Int : 362 ms QRS Dur : 116 ms QT Int : 458 ms P-R-T Axes : 072 -65 -44 degrees QTc Int : 468 ms Sinus rhythm. with 1st degree AV block. 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
[2019-06-04 06:21] LABS: URINE SOURCE CLEAN CATCH
[2019-06-04 06:35] LABS: BILIRUBIN URINE NEGATIVE (NEGATIVE); BLOOD URINE SMALL (NEGATIVE); COLOR YELLOW; GLUCOSE URINE NEGATIVE (NEGATIVE); KETONE URINE NEGATIVE (NEGATIVE); LEUKOCYTES URINE SMALL (NEGATIVE); NITRITE URINE NEGATIVE (NEGATIVE); PROTEIN URINE NEGATIVE (NEGATIVE); SP GRAVITY URINE 1.014; TURBIDITY URINE CLEAR (CLEAR); UROBILINOGEN URINE NORMAL (NORMAL)
[2019-06-04 06:36] LABS: UR EPITHELIAL CELLS <10 /HPF (<10); URINE BACTERIA NEGATIVE /HPF; URINE WBC <10 /HPF (<10)
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
[2019-06-04 08:12] LABS: BASO# 0.04 X1000 (0.0-0.2); BASO% 0.6 % (0.0-0.8); EOS# 0.35 X1000 (0.0-0.7); EOS% 5.6 % (0.0-10.0); HEMATOCRIT 38.7 % (42.0-52.0); HEMOGLOBIN 12.1 g/dL (14.0-18.0); LYMPH# 1.71 X1000 (1.2-3.4); LYMPH% 27.3 % (20.5-51.1); MCH 29.4 PG (27-31); MCHC 31.3 g/dL (33-37); MCV 93.9 FL (81-99); MONO# 0.64 X1000 (0.11-0.59); MONO% 10.2 % (1.7-9.3); MPV 10.2 FL (7.4-10.4); NEUT# 3.53 X1000 (1.4-6.5); NEUT% 56.3 % (42.2-75.2); PLT 193 X1000 (130-400); RBC 4.12 XMIL (4.7-6.1); RDW 14.7 % (11.5-14.5); WBC 6.27 X1000 (4.8-10.8)
[2019-06-04 09:06] LABS: ALB/GLOB RATIO 1.2; ALBUMIN 3.6 g/dL (3.5-5.0); CALCIUM 9.6 mg/dL (8.8-10.2); CREATININE 2.2 mg/dL (0.7-1.2); MAGNESIUM 1.6 mg/dL (1.5-2.7); POTASSIUM 5.2 mmol/L (3.5-5.1); TOTAL BILIRUBIN 0.73 mg/dL (0.20-1.00); TOTAL PROTEIN 6.7 g/dL (6.3-8.3)
[2019-06-04] MEDS: NORVASC PO SCH (09:48)
[2019-06-04] MEDS: FLOMAX PO SCH ×2 (09:49→21:19)
[2019-06-04] MEDS: ASPIRIN PO SCH (09:49)
[2019-06-04] MEDS: PROSCAR PO SCH (09:49)
[2019-06-04] MEDS: COREG PO SCH ×2 (09:49→21:19)
[2019-06-04] MEDS: LOKELMA POWDER PACKET PO SCH (13:18)
--- NOTE | 2019-06-04 13:42 | CARDIOLOGY CONSULTATION ---
DATE: 06/04/2019 HISTORY OF PRESENT ILLNESS: Cardiology was consulted. Mr. Raúl Corral is an 83-year-old, -[place] gentleman with a history of coronary artery disease, LV dysfunction in the past. He came to the emergency room as he was more short of breath. He was evaluated in the emergency room, was noted to have a potassium of 6 with worsening of renal function. The patient appeared to be clinically dry. He denies any chest pain this morning. He complains complaints of feeling better. There is no history of palpitations. There is no dizziness or syncope. REVIEW OF SYSTEMS: A 14-point review of systems was done. GI System: There is no history of nausea, vomiting, diarrhea. There is no history of hematemesis or melena. Central Nervous System: No focal weakness to suggest a CVA or TIA. Genitourinary System: There is no dysuria or hematuria. PAST MEDICAL HISTORY: 1. Coronary artery disease. Last cardiac catheterization on 07/10/2013. Right coronary artery minimal 20 to 30 percent and mid 30 to 50 percent disease, left anterior descending artery 50 to 60 percent disease, ramus 70 percent focal disease. 2. There is mild aortic stenosis. 3. History of congestive heart failure. 4. LV dysfunction with normalization of left ventricular systolic function. 5. COPD. 6. Diabetes. 7. Hypothyroidism. 8. Benign prostatic hypertrophy. MEDICATIONS: His medications at home include Lasix 40 mg a day, lisinopril 20 mg p.o. b.i.d., tamsulosin 0.4, finasteride 5, amlodipine 5, Coreg 6.25 mg p.o. b.i.d., aspirin, potassium supplements. ALLERGIES: He is not known to be allergic to any medications. SOCIAL HISTORY: Patient does not smoke. There is no history of alcohol abuse. PHYSICAL EXAMINATION: Blood pressure was 130/79. This morning, 127/72. First and second heart sounds were heard. There was an ejection systolic murmur. Respiratory System: Normal air entry. There were no crepitations or rhonchi. Abdomen: Soft, nontender. There was no guarding or rigidity. Bowel sounds were heard. Central Nervous System: Alert, oriented, was moving all 4 extremities. Examination of extremities revealed no pedal edema. HEENT: Atraumatic, normocephalic. Pupils were equal and reacting to light. ASSESSMENT AND PLAN: Mr. Raúl Corral is an 83-year-old, -[place] gentleman with minimal coronary artery disease, left ventricular dysfunction in the past with normalization, has history of hypertension, benign prostatic hypertrophy. He is admitted with shortness of breath. LABORATORY EXAMINATION: Revealed sodium of 144, potassium 6.0, BUN 34, creatinine 2.4. This morning, his electrolytes revealed a sodium of 145, potassium 5.2, BUN 32, creatinine 1.2. Troponin T high sensitivity was 115 in the setting of renal insufficiency. Patient has chronic renal insufficiency. RECOMMENDATIONS: 1. We will get an echocardiogram to assess cardiac and valvular function. He does have mild aortic stenosis. 2. He is admitted with shortness of breath with abnormal troponin which I suspect is secondary to his renal insufficiency. However, he has known coronary artery disease without any chest pain. We will set him up to undergo a Lexiscan Cardiolite stress test to rule out ischemia. 3. Worsening renal function with hyperkalemia. His potassium supplements, SALIMA inhibitors, and diuretics have been held. He is to continue with Coreg and Norvasc. Hydralazine has been started. 4. Chest x-ray revealed pulmonary fibrosis. No change from previous x-rays. 5. Electrocardiogram revealed normal sinus rhythm, interventricular conduction delay, old anterior UT with first-degree AV block. I have not made any other changes to his medications. Thank you for the consult. We will follow hospital course. cc: Damien Johnson MD
--- NOTE | 2019-06-04 14:31 | PROGRESS NOTE ---
DATE: 06/04/2019 SUBJECTIVE: This morning, Mr. Corral referred to be doing well. He said his breathing has improved some. He denies any chest pain. OBJECTIVE: Vital Signs: Blood pressure is 140/72, pulse of 73, respirations are 18, temperature is 98.3 degrees. General Examination: Mr. Corral is an 83-year-old, gentleman. He is in bed. No distress. HEENT: Mucosa is pink and moist. Anicteric. Acyanotic. Neck: Supple. Chest: There is good air entry bilaterally. I did not hear any crackles or rhonchi. Cardiovascular: Regular rate and rhythm. There is a 2/6 aortic systolic murmur radiating to the neck. [place] beat is at 5th intercostal space, midclavicular line. GI: Abdomen is soft, nontender. Bowel sounds present. Extremities: No pedal edema. HOT DIP GALVANIZER: The patient is awake, alert, oriented. There is no focal deficit. Laboratory Data: WBC is 6.27, hemoglobin is 12.1, platelet count of 193,000. Chemistry is also reviewed. Potassium is up to 5.3, creatinine is 2.2, BUN is 32 and Pro-B is also up to 15,852. A repeat chest x-ray this morning shows pulmonary fibrosis. ASSESSMENT: 1. Acute onset of shortness of breath prior to hospitalization. Increase in troponins. No T- waves or ST-segment abnormality. However, the EKG shows a left axis deviation and first- degree block with a continued elevation in the troponins with concern patient could have a non- ST elevation myocardial infarction. We are going to consult cardiology. He has been started on his home medications including statin, aspirin, beta blockers. 2. Severe hyperkalemia on admission. We think this is probably medication induced in the face of poor kidney function. Lisinopril and potassium supplements have been discontinued. We will start the patient on Lokelma. 3. Clinical volume depletion on admission seems to have improved. 4. History of congestive heart failure. Ejection fraction of 43% on an echocardiogram in November 2018. The patient presented, initially it looked like he was volume depleted. He was gently hydrated overnight. He looks euvolemic. 5. History of ischemic cardiomyopathy with nonobstructive coronary atherosclerosis, with a persistent elevation in the troponins. Unsure if this is a reflection of worsening of his coronary atherosclerotic disease or it is a demand mismatch. 6. History of benign prostatic hypertrophy. Patient is on finasteride and tamsulosin. I understand he had issues last night and he had to be in-and-out catheterized. Urology has been consulted. 7. Left ventricle hypertrophy on previous echocardiogram, most likely due to hypertensive heart disease. We will continue with his blood pressure medications at home. Lisinopril has been discontinued. We have started the patient on hydralazine with Isordil. 8. Moderate aortic stenosis on previous echocardiogram noted. PLAN: In general, Mr. Corral seems to be doing relatively okay. He said his breathing has improved some. He is not on any supplemental oxygen. However, his troponins have been climbing up and his proBNP has also gotten worse. This is concerning for any acute coronary syndrome as probably the inciting event that brought him to the hospital with the shortness of breath. We have consulted cardiology. The patient has been started back on his home medications except for lisinopril and he has been started on hydralazine with Isordil combination. We will follow up with further recommendations from cardiology. cc: Derrick Garza MD MTDD
--- NOTE | 2019-06-04 16:18 | ECHO REPORT ---
ORDER DATE: 06/04/2019 INTERPRETING PHYSICIAN: Dr. Damien Johnson. ECHOCARDIOGRAPHIC MEASUREMENTS: 1. Interventricular septum: 1.2 cm. 2. Left ventricular posterior wall: 1.1 cm. 3. Diastolic diameter: 5.3 cm. 4. Left atrium is enlarged. 5. Right atrium: 3.9 cm. SUMMARY OF THE 2-DIMENSIONAL IMAGIN. Aortic valve leaflets are calcified. 2. Mitral valve was normal. 3. Tricuspid valve was normal. 4. Normal left ventricular cavity size. 5. Borderline left ventricular hypertrophy. 6. Estimated ejection fraction of 50 to 55%. 7. There is grade 2 diastolic dysfunction. 8. Peak velocity across the aortic valve was 3.7 meters per second with a maximum gradient of 55 mmHg, mean gradient of 36 mmHg. 9. Aortic valve area of 1.2 cm. 10. There is moderate aortic stenosis associated with mild aortic regurgitation. 11. There is mild tricuspid regurgitation. 12. Peak velocity across the tricuspid valve was 3.6 meters per second. 13. Pulmonary artery systolic pressure of 60 mmHg. 14. There is mild mitral regurgitation. 15. Mild tricuspid regurgitation. 16. There is no pericardial effusion or obvious intracardiac mass or thrombus seen. cc: Damien Johnson MD
--- NOTE | 2019-06-04 16:45 | CONSULTATION ---
DATE OF CONSULTATION: 06/04/2019 CHIEF COMPLAINT: Urinary retention. HISTORY OF PRESENT ILLNESS: Mr. Corral is an 83-year-old -[place] male with history of congestive heart failure, hypertension, hyperlipidemia, COPD, type 2 diabetes, coronary artery disease and chronic kidney disease, baseline between 1.8 and 2.1. The patient had presented to the emergency room yesterday when he felt like he was becoming short of breath and he became concerned. He was brought to the emergency room and was evaluated by the emergency physicians and hospitalist and was admitted for observation. He denied significant lower extremity edema, wheezing, chest pain, cough, fever, or chills. The patient was admitted for COPD exacerbation and elevated potassium levels. Potassium was elevated at 6 with a creatinine elevated. ProBNP was elevated at 7301. He was then treated with hyperkalemia therapy and Urology was consulted when difficulty arose trying to preform straight catheter. A bladder scan was performed which showed approximately 500 in his bladder and they attempted in a catheter and met resistance. Urology was consulted for further recommendations. Patient states that he takes 2 medications for his prostate including Flomax and finasteride. He states he has been on these for some time now but less than a year. He denies any difficulty with urination at home or here in the hospital. He feels like he gets up 1 to 2 times a night to urinate and feels like his urinary stream is good on his current medical regimen. He has void 3 times so far today. PAST MEDICAL HISTORY: 1. Congestive heart failure. 2. Hypertension. 3. Hyperlipidemia. 4. COPD. 5. Type 2 diabetes. 6. Coronary artery disease. 7. Chronic kidney disease with baseline between 1.8 and 2.1. PAST SURGICAL HISTORY: 1. Right hip fracture. 2. Cholecystectomy. ALLERGIES: No known drug allergies. HOME MEDICATIONS: 1. Amlodipine 5 mg p.o. daily. 2. Aspirin 81 mg p.o. daily. 3. Carvedilol 1 tablet p.o. b.i.d. 4. Proscar 5 mg p.o. daily. 5. Furosemide 40 mg p.o. daily. 6. Lisinopril 20 mg p.o. b.i.d. 7. Potassium chloride 1 tablet p.o. daily. 8. Flomax 0.4 mg daily. FAMILY HISTORY: Denies family history of malignancy. SOCIAL HISTORY: Denies alcohol, tobacco, or illicit drug use. REVIEW OF SYSTEMS: 12 point review of systems performed with all pertinent positives and negatives per HPI. PHYSICAL EXAMINATION: Temperature 98.3 degrees, heart rate 73, blood pressure 140/72, oxygenation 100% on room air.General: No acute distress. Resting comfortably in bed. Alert and oriented x3. Respiratory: Good respiratory effort without audible wheezing or rales. HEENT: Normocephalic, atraumatic. Pupils equal, round, reactive to light. Mucous membranes moist. NECK: Trachea midline. Cardiovascular: Regular rate and rhythm. Abdomen: Soft, nontender, nondistended. : No suprapubic tenderness. No CVA tenderness. Normal phallus, uncircumcised. Bilateral testicles without asymmetry. Digital rectal exam showed approximately 40 g prostate with no nodules or asymmetry. Musculoskeletal: Moving all extremities. Skin: No skin lesions or rashes. Neurologic: Gross motor and sensory intact. LABS: White blood cell count 6.3, hemoglobin 12.1, hematocrit 38.7, platelets 193,000. Sodium 145, potassium 5.2, chloride 111, bicarb 24, BUN 32, creatinine 2.2, glucose 82. ProBNP 15,852. Troponins 115. Urinalysis shows a small amount of blood, small amount leukocytes and 10 to 20 RBCs likely from traumatic catheterization. ASSESSMENT AND PLAN: Mr. Corral is a 83-year-old male with a history of congestive heart failure, hypertension, hyperlipidemia, chronic obstructive pulmonary disease, type 2 diabetes, coronary artery disease, and chronic kidney disease who presents in consultation for urinary retention and difficult with catheterization. Looking at his records, it seems like his baseline renal function is around 1.8 to 2.1. Creatinine today is 2.2 and was 2.4 on admission. Catheter was attempted overnight due to concern for elevated postvoid residuals. The patient's postvoid residual at that time was 500. I scanned his bladder several times this morning and max volume was 257cc. He had anywhere from 200 to 257. The patient seems to be emptying out adequately for now. He denies any straining to urinate or feeling incomplete emptying. Denies any frequent urination. He does have some nocturia at home. The patient takes finasteride and Flomax. I think it is reasonable to try to increase his dose of Flomax 2 pills a day to see if this helps with the symptoms. The patient denies seeing a urologist previously. Would tentatively plan for him to follow up in the outpatient setting regarding his BPH and urinary retention. I think as long as he is able to empty his bladder, would hold off on any intervention with catheter placement as he is not having any complaints with voiding today. I think he is emptying adequately. His renal function seems to be near his baseline. We will continue with diuresis as necessary by the primary team. ProBNP is significantly elevated. Potassium seems to have improved after hyperkalemia therapy yesterday. We will continue to monitor from a urologic standpoint. Please call with questions or concerns. cc: Jamil Stephenson MD MTDD
[2019-06-04] MEDS: ISORDIL PO SCH (21:19)
[2019-06-04] MEDS: CRESTOR PO SCH (21:19)
[2019-06-04] MEDS: APRESOLINE PO SCH (21:19)
--- NOTE | 2019-06-05 07:51 | EKG Report ---
Test Performed on : 06/03/2019 08:01:55 AM Test Reason : ED. NO EKG ORDER FOR MUSE Blood Pressure : / mmHG Vent. Rate : 087 BPM Atrial Rate : 088 BPM P-R Int : 408 ms QRS Dur : 114 ms QT Int : 388 ms P-R-T Axes : 074 -60 080 degrees QTc Int : 466 ms Sinus rhythm. with 1st degree AV block. 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 has replaced Junctional rhythm. ST now depressed in Inferior leads QT has shortened Unconfirmed Result
[2019-06-05 08:03] LABS: HEMATOCRIT 38.8 % (42.0-52.0); HEMOGLOBIN 12.3 g/dL (14.0-18.0); MCH 29.9 PG (27-31); MCHC 31.7 g/dL (33-37); MCV 94.2 FL (81-99); MPV 10.1 FL (7.4-10.4); RBC 4.12 XMIL (4.7-6.1); RDW 14.7 % (11.5-14.5); WBC 6.7 X1000 (4.8-10.8)
--- NOTE | 2019-06-05 08:07 | PROGRESS NOTE ---
DATE: 06/05/2019 SUBJECTIVE: No acute events overnight. The patient was made n.p.o. in preparation for a stress test today. The patient states he has been voiding without issue. He denies any straining to urinate, hematuria, dysuria, urgency, or frequency. The patient voided multiple times yesterday without issue. He is tolerating p.o. intake yesterday. OBJECTIVE: Vital Signs: Temperature 98.4 degrees, heart rate 63, blood pressure 110/55, oxygen saturation 99% on room air. General: No acute distress. Resting comfortably in bed. Alert and oriented x3. Respiratory: Good respiratory effort without audible wheezing or rales. Abdomen: Soft, nontender, nondistended. : No suprapubic tenderness. No CVA tenderness. LABORATORY DATA: White blood cell count 6.7, hemoglobulin 12.3, hematocrit 38.8, platelets 193, sodium 144, potassium 5.0, chloride 110, bicarbonate 23, BUN 30, creatinine 2.0, glucose 107. ASSESSMENT AND PLAN: Mr. Corral is an 83-year-old with congestive heart failure, hypertension, hyperlipidemia, chronic obstructive pulmonary disease, type 2 diabetes, coronary artery disease, and chronic kidney disease, who presents in consultation regarding urinary retention and benign prostatic hypertrophy. The patient's prostate is slightly enlarged on exam. He has been on finasteride and Flomax 1 tablet daily. I increased his Flomax to 2 tablets yesterday. The patient continues with slightly elevated postvoid residuals, but denies any voiding complaints today. Will continue with Flomax 0.8 mg, as well as finasteride. Will plan for outpatient followup regarding benign prostatic hypertrophy and urinary retention. If the patient develops worsening voiding symptoms while in the hospital, could consider catheter placement, but would hold off at this time. Will continue to monitor. Please call with questions or concerns. cc: Jamil Stephenson MD MTDYung
[2019-06-05] MEDS ORDERED: LEXISCAN ONE (08:16)
[2019-06-05 08:46] LABS: ALBUMIN 3.5 g/dL (3.5-5.0); CALCIUM 9.1 mg/dL (8.8-10.2); MAGNESIUM 1.6 mg/dL (1.5-2.7); PHOSPHORUS 2.7 mg/dL (2.7-4.5)
--- NOTE | 2019-06-05 10:40 | Diag Imaging Result Doc PS360 ---
EXAM: CHEST-2 VIEWS INDICATION: hypoxia TECHNIQUE: 2 views COMPARISON: 06/04/2019 FINDINGS: Mild increased opacity at the left lung base likely representing scarring is approximately stable. No new consolidation is identified. The cardiomediastinal silhouette and central vasculature are grossly unremarkable. IMPRESSION: Stable chest. Electronically signed by Abelardo Donaldson 06/05/2019 10:38 AM
[2019-06-05] MEDS: APRESOLINE PO SCH ×2 (10:48→21:03)
[2019-06-05] MEDS: COREG PO SCH ×2 (10:49→21:03)
[2019-06-05] MEDS: ISORDIL PO SCH ×2 (10:49→21:03)
[2019-06-05] MEDS: PROSCAR PO SCH (10:49)
[2019-06-05] MEDS: NORVASC PO SCH (10:49)
[2019-06-05] MEDS: ASPIRIN PO SCH (10:49)
[2019-06-05] MEDS: FLOMAX PO SCH ×2 (10:49→21:04)
[2019-06-05] MEDS: LOKELMA POWDER PACKET PO SCH (10:49)
--- NOTE | 2019-06-05 14:13 | Diag Imaging Result Document ---
PROCEDURE NAME: MYOCARDIAL PERF SCAN, STR/REST - 06/05/2019 INDICATION: Shortness of breath, coronary artery disease. PROCEDURES PERFORMED: 1. One-day stress rest myocardial perfusion imaging (rest dose 12.5 mCi, stress dose 34.1 mCi). 2. Lexiscan stress. FINDINGS: Lexiscan stress results: 1. Baseline EKG shows sinus rhythm, evidence for a left bundle branch block. 2. Lexiscan stress did not demonstrate any clear evidence of ischemic related EKG changes or significant arrhythmias. The patient has a very prolonged first-degree AV block. Perfusion imaging results: 1. No evidence of abnormal extracardiac uptake. 2. TID ratio is 1.10. 3. Perfusion imaging shows fixed defects that are moderate in size, mild to moderate intensity, involving the entirety of the anterior wall as well as the inferior wall. The apex as well has a moderate intensity, fixed defect that could possibly be secondary to apical thinning artifact. There is no evidence of reversibility. 4. Reduced ejection fraction of 40% with a dilated left ventricle. The end-diastolic volume is 207. End-systolic volume is 124. Wall motion seems to demonstrate septal movement consistent with intraventricular conduction delay. The remainder of the ventricle has global hypokinesis. cc: MD Damien Macias MD
--- NOTE | 2019-06-05 19:50 | PROGRESS NOTE ---
DATE: 06/05/2019 SUBJECTIVE: Mr. Corral referred to be doing well today. He just went for his stress test this morning. We are waiting on the result. OBJECTIVE: Vital signs: Blood pressure is 115/51, pulse of 63, respirations 16, temperature 91.1 degrees. General: Mr. Corral is a 33-year-old male. He is in sitting in the chair, in no distress. HEENT: Mucosa is pink and moist. Anicteric. Acyanotic. Neck: Supple. Chest: Good air entry bilaterally. There were no crepitations, no rhonchi. Cardiovascular: Regular rate and rhythm. There is a 2/6 systolic murmur at the aortic area radiating to the neck. GI: Abdomen was soft, nontender. Bowel sounds present. Extremities: No pedal edema. MOLD MOVER: Patient is awake, alert, and oriented. No focal deficit. LABORATORY DATA: Has been reviewed. CBC shows mild normocytic anemia. Chemistry is also reviewed. Creatinine is down to 2.0. ProB is down to 12,175. MEDICATIONS: Have all been reviewed and no changes. ASSESSMENT: 1. Acute onset of shortness of breath on admission, associated with elevated troponin concerning for non-ST elevation myocardial infarction. 2. Severe hyperkalemia on admission, improved. 3. Systolic dysfunction with ischemic cardiomyopathy, with nonobstructive coronary arteriosclerosis on a previous left heart catheterization. The patient underwent a stress test this morning which seems to suggest no reversible ischemic lesions. 4. History of benign prostatic hypertrophy. Patient is on finasteride and tamsulosin. 5. Left ventricular hypertrophy. 6. Moderate aortic stenosis with aortic valve area of 1.27, maximum gradient of 55, and mean gradient of 36. 7. Chronic kidney disease stage 3B. Noted. 8. Mild congestive heart failure, improved. So, in general, Mr. Corral is an 83-year-old gentleman who presented with shortness of breath, elevated troponins, and elevated proB. Patient was admitted, started on his heart medications, and Cardiology was consulted. He underwent a stress test which reveals scars, but no reversible abnormality. He seems to be feeling a lot better. His proB is still slightly elevated, but is trending down. We are going to continue with his current medications and wait for final recommendations from Cardiology. I think Mr. Corral can potentially be discharged home tomorrow if it is okay with Cardiology. cc: Derrick Garza MD
[2019-06-05] MEDS: CRESTOR PO SCH (21:03)
[2019-06-06 09:19] LABS: ALBUMIN 3.3 g/dL (3.5-5.0); CALCIUM 9.2 mg/dL (8.8-10.2); CREATININE 1.9 mg/dL (0.7-1.2); PHOSPHORUS 3.1 mg/dL (2.7-4.5); POTASSIUM 5.2 mmol/L (3.5-5.1)
[2019-06-06] MEDS: FLOMAX PO SCH (09:22)
[2019-06-06] MEDS: APRESOLINE PO SCH (09:22)
[2019-06-06] MEDS: COREG PO SCH (09:23)
[2019-06-06] MEDS: PROSCAR PO SCH (09:23)
[2019-06-06] MEDS: ASPIRIN PO SCH (09:23)
[2019-06-06] MEDS: LOKELMA POWDER PACKET PO SCH (09:23)
[2019-06-06] MEDS: NORVASC PO SCH (09:23)
[2019-06-06] MEDS: ISORDIL PO SCH (09:23)
[2019-06-06 15:53] VITALS: BP 141/65
--- NOTE | 2019-07-04 22:12 | DISCHARGE SUMMARY ---
ADMISSION DATE: 06/03/2019 DISCHARGE DATE: 06/06/2019 DISCHARGE DIAGNOSES: 1. Non ST-elevation myocardial infarction. 2. Hyperkalemia. 3. Systolic dysfunction. 4. Benign prostatic hypertrophy. 5. Moderate aortic stenosis. CONSULTATIONS: Cardiology Dr. Johnson. Dr. Stephenson, urology. SUMMARY: Briefly, the patient came in for shortness of breath. He was felt to have possible CHF. His BNP was elevated. He was actually placed on fluid. He was not felt to be volume overloaded. The chest x-ray showed pulmonary fibrosis. Dr. Garza was involved. Troponins were slightly elevated. Creatinine was elevated. Hyperkalemia was persistent. Cardiology was also consulted. They recommended echo Lexiscan. He had some hyperkalemia with worsening kidney dysfunction. Echo showed an EF of 50% to 55%, moderate aortic stenosis. X-ray was stable. Myocardial perfusion scan showed fixed defects, apical thinning but was not felt to have any true evidence of reversibility. EF was about 40%. He was, therefore, I think felt stable for discharge. I did not feel like he needed care home. He ended up being discharged. DISCHARGE MEDICATIONS: Aspirin 81 daily, Coreg 6.25 b.i.d., Lasix 40 daily, Klor-Con 20 daily, Flomax 0.4 daily, Norvasc 5 daily, lisinopril 20 b.i.d. and Proscar 5 mg daily. FOLLOW UP: Cardiology, Dr. Stephenson was involved DISCHARGE CONDITION: Stable. TIME SPENT: Discharge time was 32 minutes. cc: Rajesh Alan MD
== END 2019-06-06 18:01 | disposition home or self-care (01) | DRG 281 ==
LOC: ED 07:33 → EDIPHOLD 11:37 → SUATTDRO 11:37 → EDIPHOLD 15:00 → 3N 16:07
PROVIDERS: ATTEND Internal Medicine

== ENCOUNTER 2019-07-07 18:48 | Observation (INO) ==
[2019-07-07 20:02] LABS: BASO# 0.05 X1000 (0.0-0.2); BASO% 0.4 % (0.0-0.8); EOS# 0.28 X1000 (0.0-0.7); EOS% 2.4 % (0.0-10.0); HEMATOCRIT 40.9 % (42.0-52.0); HEMOGLOBIN 12.9 g/dL (14.0-18.0); IMM GRAN# 0.02 X1000 (0.0-0.04); IMM GRAN% 0.2 % (0.0-0.5); LYMPH# 1.56 X1000 (1.2-3.4); LYMPH% 13.3 % (20.5-51.1); MCH 29.2 PG (27-31); MCHC 31.5 g/dL (33-37); MCV 92.5 FL (81-99); MONO# 0.69 X1000 (0.11-0.59); MONO% 5.9 % (1.7-9.3); MPV 10.4 FL (7.4-10.4); NEUT# 9.15 X1000 (1.4-6.5); NEUT% 77.8 % (42.2-75.2); PLT 226 X1000 (130-400); RBC 4.42 XMIL (4.7-6.1); RDW 13.7 % (11.5-14.5); WBC 11.75 X1000 (4.8-10.8)
[2019-07-07] MEDS ORDERED: NITROGLYCERIN SL ONE (20:11)
[2019-07-07] MEDS ORDERED: NITROGLYCERIN ONE (20:17)
[2019-07-07 20:27] LABS: ALB/GLOB RATIO 1.7; ALBUMIN 4.3 g/dL (3.5-5.0); CALCIUM 9.3 mg/dL (8.8-10.2); CREATININE 2.4 mg/dL (0.7-1.2); POTASSIUM 4.4 mmol/L (3.5-5.1); TOTAL BILIRUBIN 0.46 mg/dL (0.20-1.00); TOTAL PROTEIN 6.8 g/dL (6.3-8.3)
--- NOTE | 2019-07-07 20:38 | Diag Imaging Result Doc PS360 ---
EXAM: CHEST-2 VIEWS INDICATION: shortness of breath TECHNIQUE: 2 views COMPARISON: 06/05/2019 FINDINGS: There are vague linear opacities at the lower lung zones likely representing scarring. This is also seen on the previous study, however. No new consolidation is identified. There is no discrete pleural fluid collection or pneumothorax. And There is metallic shrapnel at the base of the neck that is stable. IMPRESSION: Linear markings at the lower lung zone similar to the previous study likely representing scarring. No significant changes compared to the previous study. Electronically signed by Abelardo Donaldson 07/07/2019 8:36 PM
[2019-07-07] MEDS ORDERED: LASIX IV ONE (20:54)
--- NOTE | 2019-07-07 21:08 | PROVIDER DOCUMENTATION ---
This chart was entered by Samreen Van Scribe, acting as scribe for Gab Dodd DO. HPI-Respiratory General - General Chief Complaint: Shortness of Breath Stated Complaint: TROUBLE BREATHING Time Seen by Provider: 07/07/19 19:26 Source: patient, family () Allergies/Adverse Reactions: Patient Allergies Allergy/AdvReac Type Severity Reaction Status Date / Time No Known Allergies Allergy Verified 06/03/19 09:31 Home Medications: Home Medication List Medication Instructions Recorded Confirmed Last Taken Type Aspirin [Rosy Chewable Aspirin] 81 mg PO DAILY 01/02/14 06/03/19 1 Day Ago History ~06/02/19 Potassium Chloride [Klor-Con M20] 1 tab PO DAILY 01/02/14 06/03/19 1 Day Ago History ~06/02/19 Carvedilol 1 tab PO BID 01/18/19 06/03/19 1 Day Ago History ~06/02/19 Amlodipine [Norvasc] 5 mg PO DAILY 30 Days #30 tab 01/20/19 06/03/19 1 Day Ago Rx ~06/02/19 Finasteride [Proscar] 5 mg PO DAILY 30 Days #30 tab 01/20/19 06/03/19 1 Day Ago Rx ~06/02/19 LISINOpril [Prinivil] 20 mg PO BID 30 Days #60 tab 01/20/19 06/03/19 1 Day Ago Rx ~06/02/19 Tamsulosin [Flomax] 0.4 mg PO DAILY 30 Days #30 cap 01/20/19 06/03/19 1 Day Ago Rx ~06/02/19 Furosemide 40 mg PO DAILY 06/03/19 06/03/19 1 Day Ago History ~06/02/19 - History of Present Illness-Resp Nature of Presenting Problem: Pt is an 84 yobm with c/o of shortness of breath that started this morning when he woke up, eased off for the day and then came back this evening. Pt was in hospital 1 month ago for similar symptoms. Pt's PCP is Dr. Lopez. Pt's family states his potassium dosage discontinued and his HTN medication was cut by half during hospitalization. Pt states SOB is worse when he lays down flat. Pt is alert and nontoxic in appearance. Quality of Pain: reports: dull, tightness Severity in ED: reports: mild Onset/Duration: reports: abrupt, this morning (Pt states he was SOB when he woke up and then it eased up), this evening (SOB came back worse) Timing: reports: still present, getting worse Context: denies: recent foreign travel Cough Quality/Degree: denies: no cough Current Respiratory Medication Therapy: Initiated see nurses note Modifying Factors: worse with: lying down Associated Symptoms: reports: shortness of breath. denies: chest pain/soreness, cough Similar Symptoms Previously?: Yes (hospitalized 1 month ago ) Recently seen or treated by another doctor?: Yes (06/03/2019) Review of Systems - Adult - REVIEW OF SYSTEMS - ADULT Constitutional: denies: chills, fever Eyes: reports: no symptoms reported Ears, Nose, Mouth & Throat: reports: no symptoms reported Cardiovascular: denies: chest pain, syncope Respiratory: reports: see HPI, shortness of breath. denies: cough Gastrointestinal: denies: abdominal pain, nausea, vomiting Genitourinary: reports: no symptoms reported Musculoskeletal: reports: no symptoms reported Integumentary: reports: no symptoms reported Neurological: reports: no symptoms reported Psychiatric: reports: no symptoms reported Endocrine: reports: no symptoms reported Hematologic/Lymphatic: reports: no symptoms reported Allergic/Immunologic: reports: no symptoms reported All Other Systems: Reviewed and Negative Past History - Adult - PAST MEDICAL HISTORY-ADULT Review of Records: reports: Old Records Reviewed, Nursing Assessment Review, Medications Reviewed, Social history reviewed & non-contributory. Major Childhood Illnesses: reports: denies history Cardiovascular: reports: CHF, HTN, hyperlipidemia Respiratory: reports: COPD Gastrointestinal: reports: denies history Obstetrical/Gynecological: reports: denies history Genitourinary: reports: denies history Musculoskeletal: reports: denies history Neurological: reports: denies history Endocrine/Immune: reports: denies history Other Conditions: reports: denies history - PRIOR SURGERIES/PROCEDURES Surgical/Procedure History: reports: cholecystectomy - IMMUNIZATION STATUS Childhood Immunizations: See Nurse Assessment Flu Vaccine: See Nurse Assessment - FAMILY HISTORY Family History: reviewed, not pertinent - SOCIAL HISTORY Smoking: quit greater than 1 year Substance Use: denies Living Situation: family (daughter) Physical Exam-General - PHYSICAL EXAM-ADULT Initial Vital Signs Reviewed: Yes (O2 94 L RA) - CONSTITUTIONAL General Appearance: appears well, alert, no apparent distress - EYES Eyes: PERRL/EOMI, pink conjunctivae - HEAD, EARS, NOSE, MOUTH & THROAT HENMT: normocephalic/atraumatic, moist mucous membranes, normal ENT inspection, pharynx normal - NECK Neck: non-tender, full range of motion, supple, normal inspection - RESPIRATORY Respiratory: chest non-tender, no pleuratic chest pain, no respiratory distress, rhonchi (bilateral) - CARDIOVASCULAR Cardiovascular: normal peripheral pulses, regular rate, rhythm, no edema, no gallop, no murmur - GASTROINTESTINAL (ABDOMEN) Abdominal Exam: normal bowel sounds, non tender, soft, no organomegaly, no pulsatile mass - LYMPHATIC Lymphatic: no adenopathy - MUSCULOSKELETAL Back Exam: normal inspection, no CVA tenderness, no vertebral tenderness Extremity: normal range of motion, non-tender, normal gait, no pedal edema, no calf tenderness - SKIN Integumentary: normal color, normal turgor, warm/dry - NEUROLOGIC Neurologic: grossly normal - PSYCHIATRIC Psych/Mental Status: normal mood/affect, normal thought content, normal thought process, oriented x 3 Progress - PLAN OF CARE/RESULTS Progress/Plan/Lab Results: Vital Signs - 8 hr 07/07/19 19:15 Temperature 98.5 F Pulse Rate 90 Respiratory Rate 24 Blood Pressure 137/79 O2 Sat by Pulse Oximetry 94 L Laboratory Results - last 24 hr 07/07/19 07/07/19 07/07/19 19:41 19:41 19:41 WBC 11.75 H RBC 4.42 L Hgb 12.9 L Hct 40.9 L MCV 92.5 MCH 29.2 MCHC 31.5 L RDW Std Deviation 13.7 Plt Count 226 MPV 10.4 Immature Gran % (Auto) 0.2 Neut % (Auto) 77.8 H Lymph % (Auto) 13.3 L Garfield % (Auto) 5.9 Eos % (Auto) 2.4 Baso % (Auto) 0.4 Immature Gran # (Auto) 0.02 Neut # (Auto) 9.15 H Lymph # (Auto) 1.56 Garfield # (Auto) 0.69 H Eos # (Auto) 0.28 Baso # (Auto) 0.05 Sodium 140 Potassium 4.4 Chloride 104 Carbon Dioxide 20 L Anion Gap 16 BUN 42 H Creatinine 2.4 H Estimated GFR/1.73 m2 31 BUN/Creatinine Ratio 18 Glucose 140 H Calculated Osmolality 292 Calcium 9.3 Total Bilirubin 0.46 AST 18 ALT 22 Alkaline Phosphatase 74 Creatine Kinase 141 Troponin T High Sens Ybf-M-Phninxreepi Pept 04698 H Total Protein 6.8 Albumin 4.3 Globulin 2.5 Albumin/Globulin Ratio 1.7 07/07/19 19:41 WBC RBC Hgb Hct MCV MCH MCHC RDW Std Deviation Plt Count MPV Immature Gran % (Auto) Neut % (Auto) Lymph % (Auto) Garfield % (Auto) Eos % (Auto) Baso % (Auto) Immature Gran # (Auto) Neut # (Auto) Lymph # (Auto) Garfield # (Auto) Eos # (Auto) Baso # (Auto) Sodium Potassium Chloride Carbon Dioxide Anion Gap BUN Creatinine Estimated GFR/1.73 m2 BUN/Creatinine Ratio Glucose Calculated Osmolality Calcium Total Bilirubin AST ALT Alkaline Phosphatase Creatine Kinase Troponin T High Sens 85 H [id number]-[id number] Pept Total Protein Albumin Globulin Albumin/Globulin Ratio Orders Category Date Time Status NEWS Score 2-4:Order NEWS Lactate Series NOW Care 07/07/19 19:17 Active CHEST-2 VIEWS [RAD] Stat Exams 07/07/19 19:35 Completed CBC WITH ELECTRONIC DIFF [HEME] Stat Lab 07/07/19 19:41 Completed CK PROFILE [SP CHEM] Stat Lab 07/07/19 19:41 Completed COMPREHENSIVE METABOLIC PANEL [CHEM] Stat Lab 07/07/19 19:41 Completed LACTATE, PLASMA [CHEM] Lab 07/07/19 20:41 Ordered LACTATE, PLASMA [CHEM] Lab 07/07/19 22:30 Uncollected LACTATE, PLASMA [CHEM] Lab 07/08/19 01:30 Uncollected PRO B-NATRIURETIC PEPTIDE Stat Lab 07/07/19 19:41 Completed TROPONIN T HIGH SENSITIVITY Stat Lab 07/07/19 19:41 Completed Furosemide [Lasix] Med 07/07/19 20:54 Discontinued 20 mg IV NOW ONE Nitroglycerin Sl [Nitroglycerin] Med 07/07/19 20:17 Discontinued 0.4 mg .ROUTE .STK-MED ONE Nitroglycerin Sl [Nitroglycerin] Med 07/07/19 20:11 Discontinued 0.4 mg SL NOW ONE EKG [EKG] Stat Ther 07/07/19 19:18 Ordered Result Diagrams: 07/07/19 19:41 07/07/19 19:41 - REASSESSMENT Reassessment #1 Time Reassessed: 21:01 Reassessment Comment: Pt at bedside discussing POC - EKG 1 Time of EKG reading by physician:: 19:30 EKG Read and Signed by:: Gab Dodd EKG Interpretation (*Must complete 3 of following elements*): Abnormal Rate: 90 Rhythm: Junctional rhythm [place]: left (deviation) Prior EKG Comparison: unchanged from prior (no change from 06/03/2019) Comments: Septal infarct, age undetermined - XRAY 1 XRAY Study: Chest Impression: See EMR Report ( Patient: MARKO KEVIN Date: 07/07/19MR#: [id number] : 1935DM Status: PRE ERAcct#: [id number] Age/Sex: 84/MRoom/Bed: Loc: ED Ordering Physician: Gab Dodd DO Family Physician: Ej Lopez MD Reason for Procedure: shortness of breath ___ Signed EXAM: CHEST-2 VIEWS INDICATION: shortness of breath TECHNIQUE: 2 views COMPARISON: 06/05/2019 FINDINGS: There are vague linear opacities at the lower lung zones likely representing scarring. This is also seen on the previous study, however. No new consolidation is identified. There is no discrete pleural fluid collection or pneumothorax. And There is metallic shrapnel at the base of the neck that is stable. IMPRESSION: Linear markings at the lower lung zone similar to the previous study likely representing scarring. No significant changes compared to the previous study. Electronically signed by Abelardo Donaldson 07/07/2019 8:36 PM 07/07/192035 Interpreting Physician: Abelardo Donaldson MD Dictated Date/Time: 07/07/192033 cc: Gab Dodd DO; Ej Lopez MD) - CONSULTS/PCP/HOSPITALIST Notification #1 *Consult/PCP/Hospitalist*: Hospitalist - Angel Time Discussed: 21:04 Consult Disposition: Admit Departure - Departure Date of Disposition Decision: 07/07/19 Time of Disposition Decision: 21:07 DIAGNOSIS: Congestive heart failure Disposition: ADMITTED INPATIENT 09 Certified Medical Emergency: Emergent Condition: Stable Referrals and Follow-Ups: Ej Lopez MD [Primary Care Provider] - - Critical Care Note This patient required my direct & personal management of CC.: No Attestation - Physician/ NAYANA Attestation Patient care was provided by Advanced Practice Provider:: No The physician spent face to face time with patient:: Yes Advanced Practice Provider documentation review:: Supervising physician onsite and consulted in the evaluation and care of this patient. The physician did have a face to face encounter with the patient. This chart was documented by the indicated scribe, (Samreen Van, Nade[place]) and accurately reflects the services I performed and decisions made by me, Gab Dodd DO, as attested by the provider's signature.
[2019-07-07] MEDS ORDERED: TYLENOL PO PRN (22:31)
[2019-07-07] MEDS ORDERED: ZOFRAN IV PRN (22:31)
[2019-07-07] MEDS ORDERED: MELATONIN PO ONE (23:40)
[2019-07-07] MEDS ORDERED: NS 1,000 ML IV SCH (23:45)
--- NOTE | 2019-07-08 00:32 | EKG Report ---
Test Performed on : 07/07/2019 7:13:42 PM Test Reason : sob Blood Pressure : / mmHG Vent. Rate : 090 BPM Atrial Rate : 092 BPM P-R Int : 000 ms QRS Dur : 124 ms QT Int : 398 ms P-R-T Axes : 000 -45 078 degrees QTc Int : 486 ms Undetermined rhythm Left axis deviation Septal infarct (cited on or before 06-JUL-2013) Abnormal ECG When compared with ECG of 04-JUN-2019 04:28, Current undetermined rhythm precludes rhythm comparison, needs review Serial changes of Septal infarct present Unconfirmed Result
--- NOTE | 2019-07-08 01:14 | HISTORY AND PHYSICAL ---
PRIMARY CARE PROVIDER: Dr. Lopez. CHIEF COMPLAINT: Shortness of breath. HISTORY OF PRESENT ILLNESS: Mr. Corral is a pleasant 84-year-old male who carries a past medical history of a recent non-STEMI they believe is more secondary to his chronic kidney disease; coronary artery disease; mild aortic stenosis, systolic congestive heart failure; LV dysfunction with normal ventricular function; COPD; diabetes; hypertension; BPH. He reported shortness of breath in the a.m. that resolves after he gets up and starts moving around; however, tonight his shortness of breath returned. He was not able to lie flat tonight. He felt like he was wheezing, so he felt he needed to come to the ED to be evaluated. He also reports that now for 3 years he has had difficulty sleeping at night; however, 15 months prior to his he was up and down, taking care of her. They felt like his ability to not sleep has increased since her about 15 months ago. Workup in the ED does reveal elevated proBNP; however, he does look dry again. He has had no weight gain. No lower extremity edema. He reports he has not had an appetite for quite some time now. He does not take in a lot of fluid. He will drink his 2 cups of coffee in the morning and then he may have 1 to 1-1/2 bottles of water per day, and that is on a good day. He states that there just does not have a taste anymore. He denies any recent travel or being around anyone who has traveled. No fever. No chills. No chest pain. No palpitations. No dizziness. No nausea, vomiting, diarrhea or constipation. We will place him in observation status, give him a bag of IV fluids overnight and recheck his kidney function in the a.m. We will hold his lisinopril and Lasix for now. He was given 1 dose of IV Lasix in the ED. His chest x-ray does not show any pulmonary edema. PAST MEDICAL HISTORY: Congestive heart failure; hypertension; hyperlipidemia; COPD; diabetes mellitus type 2, diet-controlled; coronary artery disease, chronic kidney disease; LV dysfunction; BPH. PAST SURGICAL HISTORY: Right hip fracture with repair in November 2018, cholecystectomy. SOCIAL HISTORY: He is a of about 15 months now. No alcohol, tobacco or illicit drug use. He is a patient of Dr. Lopez. 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 He currently lives alone. FAMILY HISTORY: Reviewed and noncontributory. REVIEW OF SYSTEMS: Twelve-point review of systems completed and negative except for those mentioned in HPI. PHYSICAL EXAMINATION: VITAL SIGNS: Temperature is 98.5 degrees, heart rate 90, respirations 24, blood pressure 137/79, O2 is 98% on room air. GENERAL: Mr. Corral is a pleasant 84-year-old male who is lying in the bed sleeping. He easily awakens to voice, in no acute distress. HEENT: Atraumatic, normocephalic. PERRL. NECK: Supple. Trachea midline. CARDIOVASCULAR: S1, S2 appreciated. PULMONARY: Bilateral breath sounds were clear. No rales, rhonchi or wheezes. GASTROINTESTINAL: Soft, nondistended, nontender. Positive bowel sounds x4 quadrants. EXTREMITIES: Lower extremities are negative for edema. Pedal pulses are palpable. NEUROLOGIC: No focal deficits noted. DIAGNOSTIC DATA: Chest x-ray showed linear markings at the lower lung zone, similar to previous study, likely representing scarring. No significant changes. LABORATORY DATA: White count 11, hemoglobin and hematocrit 12 and 49, platelet count is 226,000. Sodium 140, potassium 4.4, BUN 42, creatinine 2.4, blood glucose is 140. Troponin was 85. ProBNP is 10,112. ASSESSMENT AND PLAN: 1. Reported worsening dyspnea. He reports he has been short of breath for several years now, he reports especially in the morning; however, it resolves when he gets up and gets his day started. Tonight, however, he was unable to lie flat. He was wheezing. He is currently not wheezing anymore. Chest x-ray does not show any acute pulmonary processes. He has reported no weight gain. No lower extremity edema. We will do p.r.n. DuoNeb, supplemental oxygen p.r.n. as well, and place him in observation status. Elevated proBNP, however, he looks dry again. We will recheck his proBNP in the a.m. He did get 1 dose of Lasix in the emergency department. Resume his home Lasix when appropriate. 2. Elevated troponin. He is adamantly denying any chest pain. We will continue to trend 2 more sets of cardiac enzymes. 3. Acute kidney injury on chronic kidney disease. We will gently hydrate him overnight, recheck his kidney function in the a.m. 4. Benign prostatic hypertrophy. We will continue home medications. 5. Insomnia. We will start him off with melatonin for the meantime, see how he does. 6. Moderate aortic stenosis. Aware. 7. Type 2 diabetes. He is diet-controlled. He does not take any home medications. 8. Coronary artery disease. Adamantly denying any chest pain, however, did have an elevated troponin. We will continue to trend. He did have a recent echocardiogram and stress test back in May. 9. Further recommendation to follow physician evaluation, laboratory and diagnostic data. Dictated by JANKI Pope for Mendoza Ortiz MD I have performed a face to face diagnostic evaluation. Labs/xrays- reviewed. Exam- Chest- clear, CV- regular, Abd- soft. A/P- Dyspnea, Elevated troponin, JUAN- Admit, supplemental oxygen, duo nebs, trend troponin, cardiology consult, Monitor renal function. Dr. Ortiz cc: MD Ej Torres MD [facility]
[2019-07-08 04:44] LABS: BASO# 0.05 X1000 (0.0-0.2); BASO% 0.6 % (0.0-0.8); EOS# 0.16 X1000 (0.0-0.7); HEMATOCRIT 37.5 % (42.0-52.0); HEMOGLOBIN 11.9 g/dL (14.0-18.0); LYMPH# 2.33 X1000 (1.2-3.4); LYMPH% 28.8 % (20.5-51.1); MCH 29.6 PG (27-31); MCHC 31.7 g/dL (33-37); MCV 93.3 FL (81-99); MONO# 0.57 X1000 (0.11-0.59); MPV 10.2 FL (7.4-10.4); NEUT# 4.99 X1000 (1.4-6.5); NEUT% 61.6 % (42.2-75.2); PLT 208 X1000 (130-400); RBC 4.02 XMIL (4.7-6.1); RDW 13.7 % (11.5-14.5)
[2019-07-08 04:47] LABS: ALB/GLOB RATIO 1.1; ALBUMIN 3.6 g/dL (3.5-5.0); CALCIUM 9.3 mg/dL (8.8-10.2); CREATININE 2.4 mg/dL (0.7-1.2); POTASSIUM 4.8 mmol/L (3.5-5.1); TOTAL BILIRUBIN 0.61 mg/dL (0.20-1.00); TOTAL PROTEIN 6.8 g/dL (6.3-8.3)
--- NOTE | 2019-07-08 08:08 | Diag Imaging Result Doc PS360 ---
EXAM: CHEST-PORTABLE INDICATION: dyspnea TECHNIQUE: One view COMPARISON: 07/07/2019 FINDINGS: Mild increased interstitial opacity bilaterally is unchanged. Most of this probably represents mild interstitial fibrotic change. No new consolidation is identified. Cardiac silhouette is stable. IMPRESSION: Stable chest. Electronically signed by Abelardo Donaldson 07/08/2019 8:06 AM
[2019-07-08 08:21] VITALS: BP 115/52
[2019-07-08] MEDS ORDERED: FLOMAX PO SCH (09:00)
[2019-07-08] MEDS ORDERED: NORVASC PO SCH (09:00)
[2019-07-08] MEDS ORDERED: COREG PO SCH (09:00)
[2019-07-08] MEDS ORDERED: ASPIRIN PO SCH (09:00)
[2019-07-08] MEDS ORDERED: PROSCAR PO SCH (09:00)
--- NOTE | 2019-07-08 13:32 | DISCHARGE SUMMARY ---
ADMISSION DATE: 07/07/2019 DISCHARGE DATE: 07/08/2019 PRIMARY CARE PHYSICIAN: Ej Lopez MD. ADMISSION DIAGNOSES: 1. Worsening dyspnea. 2. Elevated troponin without chest pain. 3. Acute kidney injury on chronic kidney disease. 4. Benign prostatic hypertrophy. 5. Insomnia. 6. Moderate aortic stenosis. 7. Diabetes type 2, diet controlled. 8. Coronary artery disease without chest pain. DISCHARGE DIAGNOSES: 1. Worsening dyspnea. 2. Elevated troponin without chest pain. 3. Acute kidney injury on chronic kidney disease. 4. Benign prostatic hypertrophy. 5. Insomnia. 6. Moderate aortic stenosis. 7. Diabetes type 2, diet controlled. 8. Coronary artery disease without chest pain. SUMMARY OF FINDINGS: This is a pleasant, 84-year-old male who presented with complaints of shortness of breath that resolved after he gets up and moves around. However, the shortness of breath returned on the night of arrival and he was not able to lie flat, felt like he was wheezing, so he came to the emergency room to be evaluated. Chest x-ray did not show any acute pulmonary process. He reported no weight gain. No lower extremity edema. We placed him on supplemental oxygen p.r.n. We did trend cardiac enzymes that were negative x2 sets. We rechecked a chest x-ray this morning that showed a stable chest. His O2 saturation is 99% on room air and it is now felt that he can safely be discharged home. DISCHARGE MEDICATIONS: Amlodipine 5 mg p.o. daily, aspirin 81 mg p.o. daily, carvedilol 6.25 mg p.o. b.i.d., finasteride 5 mg p.o. daily, tamsulosin 0.4 mg p.o. daily, Lasix 40 mg p.o. daily, lisinopril 20 mg p.o. b.i.d., and potassium 20 mEq p.o. daily. FOLLOWUP: He will follow up with his primary care physician in the next week and call their office for an appointment. All discharge instructions were reviewed with the patient and he verbalized understanding. Dictated by JANKI Alcala for Marcial Munoz MD cc: JANKI Alcala MD Michael Putman, MD
--- NOTE | 2019-07-08 18:13 | EKG Report ---
Test Performed on : 07/08/2019 06:18:26 AM Test Reason : sob Blood Pressure : / mmHG Vent. Rate : 066 BPM Atrial Rate : 066 BPM P-R Int : 364 ms QRS Dur : 122 ms QT Int : 458 ms P-R-T Axes : 076 -57 -22 degrees QTc Int : 480 ms Sinus rhythm. with 1st degree AV block. 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
== END 2019-07-08 12:03 | disposition home or self-care (01) ==
LOC: ED 18:48 → INTOOBSV 21:50 → SUATTDRO 21:50 → 3N 21:50
PROVIDERS: ATTEND Internal Medicine